=== PATIENT | male | born 1950 | race Two or more races ===

== ENCOUNTER 2019-07-14 15:28 | Emergency (ER) | payer MEDICAID, OTHER ==
[~2019-07-14] VITALS: Ht 160 cm; Wt 58.9 kg
[2019-07-14 16:08] LABS: Basophils # (auto) 0 uL; Basophils % (auto) 0.4 % (0.0-2.0); Eosinophils # (auto) 0.5 uL; Eosinophils % (auto) 5.2 % (0.0-7.0); Hematocrit 47.5 % (41.0-53.0); Hemoglobin 16.2 g/dL (13.5-17.5); Lymphocytes # (auto) 1.5 uL; Lymphocytes % (auto) 16.6 % (10.0-50.0); Mean Corpuscular Hemoglobin 30.7 pg (28.0-32.0); Mean Corpuscular Hgb Conc. 34.2 g/dL (32.0-36.0); Mean Corpuscular Volume 89.6 fL (80.0-100.0); Monocytes # (auto) 0.7 uL; Monocytes % (auto) 7.3 % (0.0-12.0); Neutrophils # (auto) 6.4 uL; Neutrophils % (auto) 70.5 % (37.0-80.0); Nucleated Red Blood Cells % 0.1 %; Platelet Count (auto) 176 10^3/uL (140-450); Red Blood Cells 5.29 10^6/uL (4.5-5.90); Red Cell Distribution Width 13.6 % (11.8-14.3)
[2019-07-14 16:20] LABS: INR 1.09 (0.9-1.15); Partial Thromboplastin Time 26.4 sec (23.64-32.05)
[2019-07-14 16:33] LABS: Albumin 3.8 g/dL (3.4-5.0); Anion Gap 4 (5-15); Blood Urea Nitrogen 29 mg/dL (7-18); Calcium 8.8 mg/dL (8.5-10.1); Carbon Dioxide 29 mmol/L (21-32); Chloride 102 mmol/L (98-107); Glucose 115 mg/dL (74-106); Sodium 135 mmol/L (136-145)
[2019-07-14 16:35] LABS: Alanine Aminotransferase 32 U/L (16-61); Aspartate Aminotransferase 19 U/L (15-37); BUN/Creatinine Ratio 19.7; GFR African American 61 mL/min; GFR Non-African American 50 mL/min
[2019-07-14 16:40] LABS: Alkaline Phosphatase 94 U/L (45-117); Bilirubin, Total 2.6 mg/dL (0.2-1.0); Total Protein 8.2 g/dL (6.4-8.2)
[2019-07-14 20:20] VITALS: BP 129/69
[2019-07-14] MEDS ORDERED: MECLIZINE HCL 25 MG TAB PO ONE (20:45)
== END 2019-07-14 20:56 | disposition home or self-care (01) ==
LOC: ER 15:28
DX: H81.10 Benign paroxysmal vertigo, unspecified ear (principal)
CPT/HCPCS: 36415; 70450; 80053; 84484; 85025; 85610; 85730; 93005; 99285; J8597

== ENCOUNTER 2021-02-27 12:38 | Inpatient (IN) | payer MEDICAID ==
[~2021-02-27] VITALS: Ht 157.5 cm; Wt 83.1 kg
[2021-02-27 13:16] LABS: Hematocrit 49.3 % (41.0-53.0); Hemoglobin 16.8 g/dL (13.5-17.5); Mean Corpuscular Hemoglobin 30.3 pg (28.0-32.0); Mean Corpuscular Hgb Conc. 34.1 g/dL (32.0-36.0); Mean Corpuscular Volume 88.7 fL (80.0-100.0); Red Blood Cells 5.56 10^6/uL (4.5-5.90); Red Cell Distribution Width 13.6 % (11.8-14.3); White Blood Cell 21.3 10^3/uL (4.4-10.8)
[2021-02-27 13:24] LABS: Albumin 3.4 g/dL (3.4-5.0); Anion Gap 10 (5-15); Blood Urea Nitrogen 35 mg/dL (7-18); Calcium 8.9 mg/dL (8.5-10.1); Carbon Dioxide 20 mmol/L (21-32); Chloride 106 mmol/L (98-107); Glucose 206 mg/dL (74-106); Magnesium 2.1 mg/dL (1.6-2.6); Potassium 3.9 mmol/L (3.5-5.1); Sodium 136 mmol/L (136-145)
[2021-02-27 13:29] LABS: Basophils % (manual) 0 (0.0-2.0); Blast Cells 0; Eosinophils % (manual) 0 (0-7); Metamyelocytes % 0; Myelocytes % 0; Promyelocytes % 0; Reactive Lymphocytes 0
[2021-02-27 13:31] LABS: Alanine Aminotransferase 37 U/L (16-61); Alkaline Phosphatase 95 U/L (45-117); Aspartate Aminotransferase 22 U/L (15-37); BUN/Creatinine Ratio 17.2; Bilirubin, Total 3.4 mg/dL (0.2-1.0); GFR African American 42 mL/min; GFR Non-African American 34 mL/min; Total Protein 7.8 g/dL (6.4-8.2)
[2021-02-27 13:53] LABS: Band Neutrophils % (manual) 22; Lymphocytes % (manual) 3 (10.0-50.0); Monocytes % (manual) 6 (0-12)
[2021-02-27 14:12] LABS: Lactic Acid w/Reflex 3.5 mmol/L (0.4-2.0)
[2021-02-27] MEDS ORDERED: AZITHROMYCIN 500MG/ 250ML 250 ML IV ONE (15:15)
[2021-02-27] MEDS ORDERED: DEXTROSE (50%) 50ML SYRG IV PRN (18:30)
[2021-02-27] MEDS ORDERED: ACETAMINOPHEN 500 MG TAB PO PRN (18:30)
[2021-02-27] MEDS ORDERED: hydrALAZINE HCL 20 MG/ML VL IV PRN (18:30)
[2021-02-27] MEDS ORDERED: MORPHINE SULFATE INJECTION 2 MG/ML SYRG IV PRN ×2 (18:30)
[2021-02-27] MEDS ORDERED: NITROGLYCERIN 0.4 MG SL TAB SL PRN (18:30)
[2021-02-27] MEDS ORDERED: ONDANSETRON HCL 4 MG/2 ML VIAL IV PRN (18:30)
[2021-02-27] MEDS ORDERED: TAMS1CAP25 PO (18:33)
[2021-02-27] MEDS ORDERED: EMPA1TAB PO (18:33)
[2021-02-27] MEDS ORDERED: HYDR25TA4 PO (18:33)
[2021-02-27] MEDS ORDERED: ATOR20TA50 PO (18:33)
[2021-02-27] MEDS ORDERED: METO-289 PO (18:33)
[2021-02-27] MEDS ORDERED: AMLO-489 PO (18:33)
[2021-02-28] MEDS: ACCU-CHEK COMFORT CURVE STRIP VI SCH ×5 (01:44→21:21)
[2021-02-28] MEDS: InsuLIN REG 1unit/0.01ml Soln (100units/ml) SC SCH ×5 (01:45→21:24)
[2021-02-28] MEDS: IPRATROPIUM BROM 0.5 MG/2.5ML INH SOL NEB SCH ×3 (05:27→19:08)
[2021-02-28] MEDS: ALBUTEROL SULF 2.5 MG/0.5ML(0.5%) NEB SOLN NEB SCH ×3 (05:27→19:08)
[2021-02-28 07:24] LABS: Basophils # (auto) 0 10 ^3/uL (0-0.2); Basophils % (auto) 0.1 % (0.0-2.0); Eosinophils # (auto) 0.1 10 ^3/uL (0-0.8); Eosinophils % (auto) 0.6 % (0.0-7.0); Hematocrit 46.5 % (41.0-53.0); Hemoglobin 16.1 g/dL (13.5-17.5); Lymphocytes # (auto) 0.8 10 ^3/uL (0.4-5.4); Lymphocytes % (auto) 5.4 % (10.0-50.0); Mean Corpuscular Hemoglobin 30.3 pg (28.0-32.0); Mean Corpuscular Hgb Conc. 34.6 g/dL (32.0-36.0); Mean Corpuscular Volume 87.8 fL (80.0-100.0); Monocytes # (auto) 0.9 10 ^3/uL (0-1.3); Monocytes % (auto) 6.4 % (0.0-12.0); Neutrophils # (auto) 12.7 10 ^3/uL (1.6-8.6); Neutrophils % (auto) 87.5 % (37.0-80.0); Nucleated Red Blood Cells % 0.1 %; Red Blood Cells 5.29 10^6/uL (4.5-5.90); Red Cell Distribution Width 13.7 % (11.8-14.3); White Blood Cell 14.5 10^3/uL (4.4-10.8)
[2021-02-28 08:30] VITALS: BP 133/66
[2021-02-28 08:32] LABS: Urine Bacteria NONE SEEN /hpf (None Seen); Urine Blood 1+ /uL (Negative); Urine Hyaline Cast FEW /lpf (0 - 2); Urine Mucus FEW (None Seen); Urine Specific Gravity 1.023 (1.001-1.035); Urine WBC 2 /hpf (0 - 3)
[2021-02-28] MEDS: cefTRIAXone 1GM/50ML D5W 50 ML IV SCH (09:13)
[2021-02-28] MEDS ORDERED: amLODIPine BESYLATE 5 MG TAB PO SCH (10:00)
[2021-02-28] MEDS ORDERED: AZITHROMYCIN 500MG/ 250ML 250 ML IV SCH (10:00)
[2021-02-28] MEDS: SODIUM CHLORIDE 0.9% 1,000 ML IV SCH (12:02)
[2021-02-28 13:49] VITALS: BP 137/74
[2021-02-28 17:15] VITALS: BP 136/76
[2021-02-28] MEDS: TAMSULOSIN HYDROCHLORIDE 0.4 MG CAP PO SCH (17:50)
[2021-02-28 22:00] VITALS: BP 108/61
[2021-03-01] MEDS: SODIUM CHLORIDE 0.9% 1,000 ML IV SCH ×3 (00:49→17:15)
[2021-03-01 05:00] VITALS: BP 129/78
[2021-03-01] MEDS: ALBUTEROL SULF 2.5 MG/0.5ML(0.5%) NEB SOLN NEB SCH ×4 (06:08→18:29)
[2021-03-01] MEDS: IPRATROPIUM BROM 0.5 MG/2.5ML INH SOL NEB SCH ×4 (06:08→18:29)
[2021-03-01] MEDS: ACCU-CHEK COMFORT CURVE STRIP VI SCH ×4 (06:14→21:43)
[2021-03-01] MEDS: InsuLIN REG 1unit/0.01ml Soln (100units/ml) SC SCH ×4 (06:25→21:44)
[2021-03-01 07:24] LABS: Basophils # (auto) 0 10 ^3/uL (0-0.2); Basophils % (auto) 0.4 % (0.0-2.0); Eosinophils # (auto) 0.3 10 ^3/uL (0-0.8); Hematocrit 43.9 % (41.0-53.0); Hemoglobin 15.4 g/dL (13.5-17.5); Lymphocytes # (auto) 1.1 10 ^3/uL (0.4-5.4); Lymphocytes % (auto) 10.2 % (10.0-50.0); Mean Corpuscular Hemoglobin 30.9 pg (28.0-32.0); Mean Corpuscular Hgb Conc. 35.1 g/dL (32.0-36.0); Monocytes # (auto) 1.1 10 ^3/uL (0-1.3); Monocytes % (auto) 10.5 % (0.0-12.0); Neutrophils # (auto) 8.2 10 ^3/uL (1.6-8.6); Neutrophils % (auto) 75.9 % (37.0-80.0); Nucleated Red Blood Cells % 0.1 %; Red Blood Cells 4.99 10^6/uL (4.5-5.90); Red Cell Distribution Width 13.6 % (11.8-14.3); White Blood Cell 10.8 10^3/uL (4.4-10.8)
[2021-03-01 07:42] LABS: BUN/Creatinine Ratio 24.5; Calcium 8.6 mg/dL (8.5-10.1); Potassium 3.3 mmol/L (3.5-5.1)
[2021-03-01 08:00] VITALS: BP 133/75
[2021-03-01 09:00] VITALS: BP 133/75
[2021-03-01] MEDS: cefTRIAXone 1GM/50ML D5W 50 ML IV SCH (09:21)
[2021-03-01] MEDS ORDERED: diphenhdrAMINE HCL 25 MG CAP PO ONE (09:30)
[2021-03-01] MEDS ORDERED: POTASSIUM CHL 20 Meq TABLET PO ONE (09:30)
[2021-03-01 13:00] VITALS: BP 128/60
[2021-03-01] MEDS: HYDROcodone-ACET 5/325MG TAB PO PRN ×2 (13:19→20:06)
[2021-03-01 17:00] VITALS: BP 128/75
[2021-03-01] MEDS: TAMSULOSIN HYDROCHLORIDE 0.4 MG CAP PO SCH (18:09)
[2021-03-01 22:00] VITALS: BP 133/75
[2021-03-02] MEDS: HYDROcodone-ACET 5/325MG TAB PO PRN ×3 (01:41→22:25)
[2021-03-02] MEDS: SODIUM CHLORIDE 0.9% 1,000 ML IV SCH (04:58)
[2021-03-02 05:00] VITALS: BP 127/71
[2021-03-02 06:06] LABS: Basophils # (auto) 0.1 10 ^3/uL (0-0.2); Basophils % (auto) 0.6 % (0.0-2.0); Eosinophils # (auto) 0.3 10 ^3/uL (0-0.8); Eosinophils % (auto) 2.8 % (0.0-7.0); Hematocrit 42.7 % (41.0-53.0); Lymphocytes % (auto) 9.6 % (10.0-50.0); Mean Corpuscular Hemoglobin 30.4 pg (28.0-32.0); Mean Corpuscular Hgb Conc. 35.1 g/dL (32.0-36.0); Mean Corpuscular Volume 86.7 fL (80.0-100.0); Monocytes % (auto) 9.3 % (0.0-12.0); Neutrophils # (auto) 7.9 10 ^3/uL (1.6-8.6); Neutrophils % (auto) 77.7 % (37.0-80.0); Red Blood Cells 4.92 10^6/uL (4.5-5.90); Red Cell Distribution Width 13.5 % (11.8-14.3); White Blood Cell 10.2 10^3/uL (4.4-10.8)
[2021-03-02] MEDS: ACCU-CHEK COMFORT CURVE STRIP VI SCH ×4 (06:33→22:49)
[2021-03-02 06:34] LABS: BUN/Creatinine Ratio 18.6; Calcium 8.6 mg/dL (8.5-10.1); Potassium 4.1 mmol/L (3.5-5.1)
[2021-03-02] MEDS: InsuLIN REG 1unit/0.01ml Soln (100units/ml) SC SCH ×4 (06:34→22:50)
[2021-03-02] MEDS: ALBUTEROL SULF 2.5 MG/0.5ML(0.5%) NEB SOLN NEB SCH ×3 (07:28→19:03)
[2021-03-02] MEDS: IPRATROPIUM BROM 0.5 MG/2.5ML INH SOL NEB SCH ×3 (07:28→19:03)
[2021-03-02] MEDS: cefTRIAXone 1GM/50ML D5W 50 ML IV SCH (08:52)
[2021-03-02 09:00] VITALS: BP 152/70
[2021-03-02] MEDS: FINASTERIDE 5 MG TAB PO SCH (11:37)
[2021-03-02 13:00] VITALS: BP 135/74
[2021-03-02 17:00] VITALS: BP 148/81
[2021-03-02] MEDS: TAMSULOSIN HYDROCHLORIDE 0.4 MG CAP PO SCH (18:28)
[2021-03-02 21:40] VITALS: BP 158/81
[2021-03-03 02:56] VITALS: BP 158/81
[2021-03-03 05:21] VITALS: BP 150/69
[2021-03-03 05:38] LABS: Basophils # (auto) 0 10 ^3/uL (0-0.2); Basophils % (auto) 0.5 % (0.0-2.0); Eosinophils # (auto) 0.4 10 ^3/uL (0-0.8); Eosinophils % (auto) 4.9 % (0.0-7.0); Hematocrit 45.7 % (41.0-53.0); Hemoglobin 15.8 g/dL (13.5-17.5); Lymphocytes # (auto) 1.4 10 ^3/uL (0.4-5.4); Lymphocytes % (auto) 15.2 % (10.0-50.0); Mean Corpuscular Hemoglobin 29.9 pg (28.0-32.0); Mean Corpuscular Hgb Conc. 34.5 g/dL (32.0-36.0); Mean Corpuscular Volume 86.6 fL (80.0-100.0); Monocytes # (auto) 0.9 10 ^3/uL (0-1.3); Monocytes % (auto) 10.7 % (0.0-12.0); Neutrophils # (auto) 6.1 10 ^3/uL (1.6-8.6); Neutrophils % (auto) 68.7 % (37.0-80.0); Nucleated Red Blood Cells % 0.1 %; Red Blood Cells 5.28 10^6/uL (4.5-5.90); Red Cell Distribution Width 13.6 % (11.8-14.3); White Blood Cell 8.9 10^3/uL (4.4-10.8)
[2021-03-03] MEDS: ALBUTEROL SULF 2.5 MG/0.5ML(0.5%) NEB SOLN NEB SCH ×3 (06:22→12:00)
[2021-03-03] MEDS: IPRATROPIUM BROM 0.5 MG/2.5ML INH SOL NEB SCH ×3 (06:22→12:00)
[2021-03-03] MEDS: InsuLIN REG 1unit/0.01ml Soln (100units/ml) SC SCH (06:51)
[2021-03-03] MEDS: ACCU-CHEK COMFORT CURVE STRIP VI SCH (06:51)
[2021-03-03] MEDS: FINASTERIDE 5 MG TAB PO SCH (08:22)
[2021-03-03] MEDS: cefTRIAXone 1GM/50ML D5W 50 ML IV SCH (08:22)
[2021-03-03] MEDS: HYDROcodone-ACET 5/325MG TAB PO PRN (08:22)
[2021-03-03 09:22] VITALS: BP 151/82
[2021-03-03 11:53] VITALS: BP 159/89
== END 2021-03-03 11:44 | disposition home or self-care (01) | DRG 720 ==
LOC: ER 12:38 → TELE 18:16 → TELE-CENTR 02-28 08:37 → CENTRAL 03-01 20:48
PROVIDERS: ADMIT Nurse Practitioner Acute Care; ATTEND Internal Medicine
DX: A41.51 Sepsis due to Escherichia coli [E. coli] (principal); N17.0 Acute kidney failure with tubular necrosis; D69.6 Thrombocytopenia, unspecified; E11.22 Type 2 diabetes mellitus with diabetic chronic kidney disease; J18.9 Pneumonia, unspecified organism; N39.0 Urinary tract infection, site not specified; A41.81 Sepsis due to Enterococcus; N18.32 Chronic kidney disease, stage 3b; E87.6 Hypokalemia; N40.0 Benign prostatic hyperplasia without lower urinary tract symptoms; I12.9 Hypertensive chronic kidney disease with stage 1 through stage 4 chronic kidney disease, or unspecified chronic kidney disease; E66.9 Obesity, unspecified; Z20.822 Contact with and (suspected) exposure to COVID-19; E78.5 Hyperlipidemia, unspecified; Z79.899 Other long term (current) drug therapy; Z80.9 Family history of malignant neoplasm, unspecified; Z82.49 Family history of ischemic heart disease and other diseases of the circulatory system; Z83.3 Family history of diabetes mellitus
CPT/HCPCS: 36415; 71046; 76775; 80048; 80053; 81001; 82533; 82962; 83036; 83605; 83735; 84154; 84484; 85007; 85025; 85027; 87040; 87077; 87086; 87088; 87186; 87426; 87804; 93005; 94640; 96374; 99291; G0378; J0696; J1815

== ENCOUNTER 2022-09-04 06:23 | Emergency (ER) | payer MEDICAID ==
[~2022-09-04] VITALS: Ht 160 cm; Wt 87.0 kg
[~2022-09-04 06:23] MED LIST: AMLO-489 PO; ATOR20TA50 PO; EMPA1TAB PO; HYDR25TA4 PO; METO-289 PO; TAMS1CAP25 PO
[2022-09-04 07:15] LABS: Basophils # (auto) 0.1 10 ^3/uL (0-0.2); Basophils % (auto) 0.7 % (0.0-2.0); Eosinophils # (auto) 0.3 10 ^3/uL (0-0.8); Eosinophils % (auto) 2.4 % (0.0-7.0); Hematocrit 47.4 % (41.0-53.0); Hemoglobin 16.4 g/dL (13.5-17.5); Lymphocytes # (auto) 0.9 10 ^3/uL (0.4-5.4); Lymphocytes % (auto) 7.3 % (10.0-50.0); Mean Corpuscular Hemoglobin 30.5 pg (28.0-32.0); Mean Corpuscular Hgb Conc. 34.6 g/dL (32.0-36.0); Mean Corpuscular Volume 88.1 fL (80.0-100.0); Monocytes # (auto) 0.9 10 ^3/uL (0-1.3); Monocytes % (auto) 7.2 % (0.0-12.0); Neutrophils % (auto) 82.4 % (37.0-80.0); Red Blood Cells 5.38 10^6/uL (4.5-5.90); Red Cell Distribution Width 13.4 % (11.8-14.3); White Blood Cell 12.1 10^3/uL (4.4-10.8)
[2022-09-04] MEDS ORDERED: IBU600T PO (07:43)
[2022-09-04] MEDS ORDERED: CLIN300C8 PO (07:43)
[2022-09-04] MEDS ORDERED: HYDROcodone-ACET 10/325MG TAB PO ONE (07:45)
[2022-09-04 07:51] LABS: Albumin 3.5 g/dL (3.4-5.0); Calcium 8.9 mg/dL (8.5-10.1); Potassium 4.2 mmol/L (3.5-5.1)
[2022-09-04 07:56] LABS: BUN/Creatinine Ratio 15.6 (10.0-20.0); Bilirubin, Total 2.1 mg/dL (0.2-1.0); Total Protein 8.1 g/dL (6.4-8.2)
[2022-09-04 10:05] VITALS: BP 131/75
== END 2022-09-04 11:32 | disposition home or self-care (01) ==
LOC: ER 06:23
DX: L03.115 Cellulitis of right lower limb (principal); I10 Essential (primary) hypertension; E78.5 Hyperlipidemia, unspecified; E11.9 Type 2 diabetes mellitus without complications
CPT/HCPCS: 36415; 73600; 80053; 85025; 93971

== ENCOUNTER 2024-09-08 04:34 | Emergency (ER) | payer MEDICAID ==
[~2024-09-08] VITALS: Ht 154.9 cm; Wt 78.9 kg
[~2024-09-08 04:34] MED LIST changes: +ACET500T58 PO; -AMLO-489 PO; +AMLO1TAB22 PO; +CLIN1CAP70 PO; +IBU600T PO; +LEVO500T91 PO
--- NOTE | 2024-09-08 05:17 | ED.PDOC ---
Back pain HPI HPI Comments PATIENT COMES WITH C/C OF RIGHT ELBOW PAIN 02/03 THAT RADIATES TO LOWER ARM DENIES NUMBNESS OR TINGLING . PATIENT REPORTS THAT HE SAW HIS DR YESTERDAY AND THEY GAVE HIM IBUPROFEN AND WOKE UP WITH WORSE PAIN THIS MORNING. DENIES ANY INJURY OR TRAUMA TO ARM DENIES SLEEPING ON THAT SIDE OF BODY Chief Complaint: Upper Extremity Time Seen by MD: 05:00 Reviewed Notes: Nurses Notes, Medications, Allergies Allergies: Coded Allergies: NO KNOWN ALLERGIES (Unverified , 07/14/19) Home Meds Active Scripts Acetaminophen (Arthritis Pain Reliever) 650 Mg Tab, 650 MG PO Q6HP PRN for 10 Days, #40 TAB 0 Refills Prov:LOKI WILLIAM FOOD BEVERAGE SUPERVISOR 09/08/24 Methylprednisolone (Medrol Dosepak) 4 Mg Umair, 4 MG PO UD, #21 TAB 0 Refills UAD Prov:LOKI WILLIAM FOOD BEVERAGE SUPERVISOR 09/08/24 Acetaminophen (Acetaminophen) 500 Mg Tab, 500 MG PO Q4HP PRN, #30 TAB Prov:ANITA RIVAS PAC 02/13/24 Levofloxacin Hemihydrate (LEVAQUIN 500 MG) 500 Mg Tab, 1 TAB PO DAILY for 9 Days, #9 TAB Prov:ANITA RIVAS PAC 02/13/24 Ibuprofen Micronized (MOTRIN TABLET) 600 Mg Tb, 600 MG PO TID PRN for 5 Days, #15 TAB *Black box warning-NSAIDS can increase risk of MN & hypertension, GI irritation, ulceration, bleed, perferation. Do not use post cardiac surgery. Use short duration/lowest effective dose. Prov:GONZÁLEZ RIZO MD 09/04/22 Clindamycin Hcl (Clindamycin Hcl) 300 Mg Cap, 1 CAP PO TID for 7 Days, #21 CAP Prov:GONZÁLEZ RIZO MD 09/04/22 Reported Medications Metoprolol Succinate (Metoprolol Succinate Er) 50 Mg Tab, 50 MG PO DAILY for 30 Days, MG 02/27/21 Tamsulosin HCl (Tamsulosin Hydrochloride) 0.4 Mg Cap, 0.4 MG PO DAILY, CAP 02/27/21 Hydrochlorothiazide (Hydrochlorothiazide) 25 Mg Tab, 25 MG PO DAILY, MG 02/27/21 Atorvastatin Calcium (ATORVASTATIN CALCIUM) 20 Mg Tab, 20 MG PO HS, TAB 02/27/21 Empagliflozin (Jardiance) 10 Mg Tab, 10 MG PO DAILY, TAB 02/27/21 Amlodipine Besylate (Amlodipine Besylate) 5 Mg Tab, 10 MG PO DAILY, MG 02/27/21 Information Source: Patient Mode of Arrival: Ambulatory Past Medical History PAST MEDICAL HISTORY: DM, High Lipids, HTN Surgical History: Denies all surgeries Family History Family History: Family hx of DM, Family hx of Cancer, Family hx of HTN Social History Smoker: Non-Smoker Alcohol: Denies ETOH Use Drugs: Denies Drug Use Lives In: Home Constitutional: denies: chills, diaphoresis, fatigue, fever, malaise, sweats, weakness, others EENTM: denies: blurred vision, double vision, ear bleeding, ear discharge, ear drainage, ear pain, ear ringing, eye pain, eye redness, hearing loss, mouth pain, mouth swelling, nasal discharge, nose bleeding, nose congestion, nose pain, photophobia, tearing, throat pain, throat swelling, voice changes, others Respiratory: denies: cough, hemoptysis, orthopnea, SOB at rest, shortness of breath, SOB with excertion, stridor, wheezing, others Cardiovascular: denies: chest pain, dizzy spells, diaphoresis, Dyspnea on exertion, edema, irregular heart beat, left arm pain, lightheadedness, palpitations, PND, syncope, others Gastrointestinal: denies: abdomen distended, abdominal pain, blood streaked bowels, constipated, diarrhea, dysphagia, difficulty swallowing, hematemesis, melena, nausea, poor appetite, poor fluid intake, rectal bleeding, rectal pain, vomiting, others Genitourinary: denies: burning, dysuria, flank pain, frequency, hematuria, incontinence, penile discharge, penile sore, pain, testicle pain, testicle swelling, urgency, others Neurological: denies: dizziness, fainting, headache, left sided numbness, left sided weakness, numbness, paresthesia, pre-existing deficit, right sided numbne ss, right sided weakness, seizure, speech problems, tingling, tremors, weakness, others Musculoskeletal: reports: others (Right elbow pain); denies: back pain, gout, joint pain, joint swelling, muscle pain, muscle stiffness, neck pain Integumetry: denies: bruises, change in color, change in hair/nails, dryness, laceration, lesions, lumps, rash, wounds, others Allergic/Immunocompromised: denies: Difficulty Healing, Frequent Infections, Hives, Itching, others Hematologic/Lymphatic: denies: anemia, blood clots, easy bleeding, easy bruising, swollen glands, others Endocrine: denies: excessive hunger, excessive sweating, excessive thirst, excessive urination, flushing, intolerance to cold, intolerance to heat, unexplained weight gain, unexplained weight loss, others Psychiatric: denies: anxiety, bipolar disorder, depression, hopeless, panic disorder, schizophrenia, sleepless, suicidal, others Physical Exam General Appearance: No Apparent Distress, Normal HEENT: Pharynx Normal Neck: Full Range of Motion, Non-Tender Respiratory: Lungs Clear, No Respiratory Distress, Normal Breath Sounds Cardiovascular: No Edema, No JVD, No Murmur, No Gallop, Normal Peripheral Pulses, Regular Rate/Rhythm Breast Exam: Deferred Gastrointestinal: No Organomegaly, Non Tender, No Pulsatile Mass, Normal Bowel Sounds, Soft Genitalia: Deferred Pelvic: Deferred Rectal: Deferred Extremities: Normal capillary refill, Normal inspection, Normal range of motion, Non-tender, No pedal edema Musculoskeletal : Location: Right Extremity Location: Elbow (Moderate to severe tenderness on palpation right posterior elbow no noted abrasions, ecchymosis, lesions or lacerations mild edema strength sensory motion intact positive radial pulse) Apperance: Normal Neurologic: Alert, casing wringer operator II-XII nml as Tested, No Motor Deficits, Normal Affect, Normal Mood, No Sensory Deficits Cerebellar Function: Normal Reflexes: Normal Skin: Dry, Normal Color, Warm Lymphatic: No Adenopathy Was a procedure done? Was a procedure done?: No Back Pain Differential Dx Differential Diagnosis: Fracture, Musculoskeletal Pain X-Ray, Labs, Meds, VS Vital Signs Date Time Temp Pulse Resp B/P (MAP) Pulse Ox O2 Delivery O2 Flow Rate FiO2 09/08/24 08:08 70 20 95 Room Air 09/08/24 08:08 98.9 70 20 143/72 (95) 95 98.9 09/08/24 04:51 98.9 70 20 143/72 (95) 98.9 PATIENT: TAYLA FRAUSTOACCT: [id number]: [id number] : 1950 LOC: ER ROOM / BED: / AGE / SEX: 74 / M ADM STATUS: REG ER SERVICE [id number] ORDERING PHYSICIAN: TERRY SINGH PROCEDURE(s): RELCT - CT R ELBOW WO CONTRAST REASON: severe pain ORDER NUMBER(s): [id number], ACCESSION NUMBER(s): [id number] CLINICAL INDICATION: 74 years old, Male; severe pain. TECHNIQUE: Noncontrast CT of the right elbow was performed. Sagittal and coronal reformatted images are provided. COMPARISON: None CT Dose: CTDI volume is 29.64 mGy. Dose-length product is 794.4 mGy*cm FINDINGS: No fracture or dislocation. No cortical destruction. Severe radiocarpal and ulnar humeral joint space narrowing. There is small elbow joint effusion. Mild soft tissue swelling of the posterior elbow. IMPRESSION: 1. No acute fracture or dislocation. 2. 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 3. Elbow joint effusion. All CT scans at this medical facility are performed using dose modulation techn iques as appropriate to a performed exam including the following: Automated exposure control was utilized; adjustment of the MA and/or KV according to patient size; and use of iterative reconstruction technique. ATED BY: PADMINI YANES MD DICTATED DATE/TIME: 09/08/24726 SIGNED BY: PADMINI YANES MD SIGNED DATE/TIME: 09/08/24726 X-Ray, Labs, Meds, VS Comment IMAGING: Right elbow x-ray shows no acute fractures osseous lesions or dislocations. Patient continues with moderate we will obtain CT right elbow CT right elbow: 1. No acute fracture or dislocation. 2. 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 3. Elbow joint effusion. MEDICATIONS: [place] 10 mg p.o. Decadron 10 mg IM Apply sling and ice pending results Patient presents with elbow pain. Differential diagnosis include but not limited to: Arthritis, Tennis elbow, golfer's elbow, elbow dislocation, fracture After ROS and physical examination there were no red flags. Emphasized the importance of follow-up with their primary care doctor as there are different grades of injury and they may need further management if symptoms continue for a longer period of time. Return precautions were discussed in detail regarding increased pain, numbness, tingling, discoloration of hand and fingers. Patient verbalized understanding and agreed with the plan of care. All questions were answered. 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
[2024-09-08] MEDS: HYDROcodone-ACET 5/325MG TAB PO ONE (05:42)
--- NOTE | 2024-09-08 05:42 | DVH ---
EXAM: XR Right Elbow Complete, 3 or More Views CLINICAL INDICATION: ELBOW PAIN TECHNIQUE: Frontal, lateral and oblique views of the right elbow. COMPARISON: None FINDINGS: BONES/JOINTS: See below. SOFT TISSUES: Soft tissue swelling without acute fracture. OTHER FINDINGS: . IMPRESSION: 1. Soft tissue swelling without acute fracture. 2. If symptoms persist, further evaluation with CT is recommended.
[2024-09-08] MEDS: DexAMETHasone SOD PHOS 10MG/1ML VIAL INJ IM ONE (05:44)
--- NOTE | 2024-09-08 07:30 | DVH ---
CLINICAL INDICATION: 74 years old, Male; severe pain. TECHNIQUE: Noncontrast CT of the right elbow was performed. Sagittal and coronal reformatted images a re provided. COMPARISON: None CT Dose: CTDI volume is 29.64 mGy. Dose-length product is 794.4 mGy*cm FINDINGS: No fracture or dislocation. No cortical destruction. Severe radiocarpal and ulnar humeral j oint space narrowing. There is small elbow joint effusion. Mild soft tissue swelling of the posterio r elbow. IMPRESSION: 1. No acute fracture or dislocation. 2. 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 3. Elbow joint effusion. All CT scans at this medical facility are performed using dose modulation techniques as appropriate t o a performed exam including the following: Automated exposure control was utilized; adjustment of th e MA and/or KV according to patient size; and use of iterative reconstruction technique.
[2024-09-08] MEDS ORDERED: ACET650T26 PO (08:05)
[2024-09-08] MEDS ORDERED: METH4PAK PO (08:05)
[2024-09-08 08:08] VITALS: BP 143/72; PULSE 70; RESP 20; TEMP 98.9; O2SAT 95
== END 2024-09-08 08:13 | disposition home or self-care (01) ==
LOC: ER 04:34
DX: M19.021 Primary osteoarthritis, right elbow (principal); I10 Essential (primary) hypertension; E11.9 Type 2 diabetes mellitus without complications; Z79.84 Long term (current) use of oral hypoglycemic drugs; Z79.899 Other long term (current) drug therapy
CPT/HCPCS: 73070; 73200; 96372; 99285; J1100